=== PATIENT | male | born 1955 | race African-American/Black ===

== ENCOUNTER 2019-01-07 19:22 | Emergency (ER) | payer BC ==
[~2019-01-07] VITALS: Ht 188 cm; Wt 86.2 kg
--- NOTE | 2019-01-07 19:49 | NUR ---
ED Nurse Note: PT ambulated to ED from home c/o 12/01 shooting pain in lower back, pt reports sleeping on couch and denies trauma or injury to back, VSS Pt A&Ox4
[2019-01-07 19:50] VITALS: BP 146/83
--- NOTE | 2019-01-07 19:55 | Emergency Room Report ---
History of Present Illness General Chief Complaint: Lower Back Pain or Injury Source: Patient Present Illness HPI Disclaimer: Please note that this report is being documented using DRAGON technology. This can lead to erroneous entry secondary to incorrect interpretation by the dictating instrument. HPI: Otherwise healthy 63-year-old male presents for evaluation of back pain. Symptoms began yesterday. He has been sleeping on his couch while his daughter is visiting and while attempting to stand up from a seated position yesterday noted sudden sharp pain in the back radiating from the right lower back to the right hip. He is able to ambulate though notes significant pain on standing up fully. Denies any numbness or tingling, urinary retention, fecal incontinence, changes in strength or sensation in the lower extremities. No prior history of back pain. No back injury or trauma reported. He does not inject any medications or IV drugs and denies any fever, chills or other changes in his health. Has been using NSAIDs at home without significant improvement. PMH: Denies PSH: Denies Allergies: Denies Social Hx: Denies Allergies: Coded Allergies: No Known Allergies (Unverified , 01/07/19) Nursing Documentation-PMH Past Medical History: No Stated History Review of Systems All Other Systems: negative except mentioned in HPI Physical Exam Vital Signs Date Time Temp Pulse Resp B/P (MAP) Pulse Ox O2 Delivery O2 Flow Rate FiO2 01/07/19 19:31 98.2 73 16 146/83 (104) 96 Room Air General: Awake and alert, no acute distress HEENT: NC/AT. EOMI. Resp: Normal work of breathing. Skin: Intact. No abrasions, laceration or rash over the exposed skin MSK: Normal tone and bulk. Moving all extremities. No obvious deformity. Neuro: Awake and alert. Mentating appropriately. Sensation is intact to light touch over the dermatomes of lower extremities bilaterally. Ambulating with a steady gait. Back/Spine: No midline tenderness in the cervical, thoracic or lumbosacral spine. Mild tenderness over the right iliac crest and right paraspinal muscles. Medical Decision Making Diagnostic Impression: Primary Impression: Low back pain Additional Impression: Sciatica ER Course 63-year-old male presents for evaluation of atraumatic lower back pain. Differential includes was not limited to ligamentous strain, muscle spasm, sciatica, herniated disc, occult fracture. Suspicion for fracture or other significant injury is very low as there is no trauma reported. The patient is neurologically intact though has symptoms consistent with a possible herniated disc and mild sciatica. He will be treated with an intramuscular shot of Toradol, Robaxin and lidocaine patch in the emergency department discharged home with continued NSAIDs, Robaxin and lidocaine patches. I encouraged him to stay mobile to prevent stiffening and to follow-up with his PMD. He does not require emergent imaging at this time in my opinion. He can follow-up safely as an outpatient though we did discuss reasons to return to the emergency department including signs of cauda equina syndrome and spinal epidural abscess. He has none of these clinical findings on my examination and is low risk by history. He will be followed up as an outpatient by his PMD. Last Vital Signs Date Time Temp Pulse Resp B/P (MAP) Pulse Ox O2 Delivery O2 Flow Rate FiO2 01/07/19 19:31 98.2 73 16 146/83 (104) 96 Room Air Disposition: HOME, SELF-CARE Condition: Stable Scripts Lidocaine Patch* (Lidoderm Patch*) 1 Each Adh..patch 1 PATCH TOPIC DAILY, #7 PATCH 0 Refills Patch(es) may remain in place for up to 12 hours in any 24-hour period. Prov: Markel Olguin MD 01/07/19 Methocarbamol* (ROBAXIN-750*) 750 Mg Tablet 750 MG PO QID, #28 TAB 0 Refills Prov: Markel Olguin MD 01/07/19 Ibuprofen* (MOTRIN*) 600 Mg Tablet 600 MG ORAL Q8H PRN for For Pain, #40 TAB 0 Refills Prov: Markel Olguin MD 01/07/19 Markel Olguin MD Jan 07, 2019 19:55
[2019-01-07] MEDS ORDERED: LIDODERM700 M1 TOPIC (19:59)
[2019-01-07] MEDS ORDERED: IBUPROFEN600 MG ORAL (19:59)
[2019-01-07] MEDS ORDERED: ROBAXIN-750750 MG PO (19:59)
[2019-01-07] MEDS ORDERED: Ketorolac 30mg Inj IM ONE (20:00)
[2019-01-07] MEDS ORDERED: Methocarbamol 750mg tab ORAL ONE (20:00)
[2019-01-07 20:05] VITALS: BP 146/83
--- NOTE | 2019-01-07 20:05 | NUR ---
ER DISCHARGE NOTE: Patient is cleared to be discharged per ERMD, pt is aox4, on room air, with stable vital signs. Pt given medication per orders, tolerated well. pt was given dc and prescription instructions, pt was able to verbalize understanding, pt id band removed. pt is able to ambulate with steady gait. pt took all belongings.
== END 2019-01-07 20:05 | disposition home or self-care (01) ==
LOC: EMR 20:05
DX: M54.5 Low back pain (principal); M54.30 Sciatica, unspecified side
CPT/HCPCS: 96372; 99283; J1885